=== PATIENT | female | born 1955 | race African-American/Black ===

== ENCOUNTER 2017-02-16 05:54 | Day surgery (SDC) | payer OTHER ==
--- NOTE | ~2017-02-16 | EGD ---
EGD REPORT [facility] [address] [place]. [id number] NAME: KINGSLEY ROWLAND : 55 STATUS : REG [facility] [place] PAT#: [id number] AGE: 61 ADM/REG DATE : 02/16/17 MR#: [id number] REPORT SERV DATE: 02/16/17 DICTATED BY: OMID MYLES DATE: 02/16/17 REPORT STATUS : Draft TRANSCRIBED BY: [facility] DATE: 02/16/17 [facility] Patient Name: Kingsley Rowland Date of : 1955 Attending MD: OMID MYLES MD Procedure Date No Time: 02/16/2017 Procedure: Colonoscopy Indications: High risk colon cancer surveillance: Personal history of colonic polyps; last exam 5 years ago. Patient Profile: Informed consent was obtained from the patient by me prior to the procedure. Risks, benefits, and alternatives were discussed including the risk of bleeding, perforation, infection, reaction to medicine, missed lesion, and cardiopulmonary complications. Referring MD: TACOS BARNES Medicines: Monitored Anesthesia Care Complications: No immediate complications. Procedure: Pre-Anesthesia Assessment: - ASA Grade Assessment: III - A patient with severe systemic disease. After I obtained informed consent, the scope was passed under direct vision. Throughout the procedure, the patient's blood pressure, pulse, and oxygen saturations were monitored continuously. The CF [id number] was introduced through the anus and advanced to the cecum, identified by appendiceal orifice and ileocecal valve. The colonoscope was slowly withdrawn with careful examination all mucosal surfaces including specific attention around flexures and tip deflection behind folds; retroflexion performed in rectum. The colonoscopy was performed without difficulty. The patient tolerated the procedure well. The quality of the bowel preparation was adequate. The ileocecal valve, appendiceal orifice and rectum were photographed. Findings: A pedunculated polyp was found in the sigmoid colon. The polyp was 10 mm in size. The polyp was removed with a hot snare. Resection and retrieval were complete. A sessile polyp was found in the descending colon. The polyp was 5 mm in size. The polyp was removed with a cold biopsy forceps. Resection and retrieval were complete. A sessile polyp was found in the rectum. The polyp was 5 mm in size. The polyp was removed with a cold biopsy forceps. Resection and retrieval were complete. EGD REPORT [address] [address] NAME: KINGSLEY ROWLAND : 55 STATUS : REG [facility]#: [id number] AGE: 61 ADM/REG DATE : 02/16/17 MR#: [id number] REPORT SERV DATE: 02/16/17 DICTATED BY: OMID MYLES DATE: 02/16/17 REPORT STATUS : Draft TRANSCRIBED BY: [place] DATE: 02/16/17 Impression: - One 10 mm polyp in the sigmoid colon. Resected and retrieved. - One 5 mm polyp in the descending colon. Resected and retrieved. - One 5 mm polyp in the rectum. Resected and retrieved. Recommendation: - Patient has a contact number available for emergencies. The signs and symptoms of potential delayed complications were discussed with the patient. Return to normal activities tomorrow. Written discharge instructions were provided to the patient. - Patient has a contact number available for emergencies. The signs and symptoms of potential delayed complications were discussed with the patient. Return to normal activities tomorrow. Written discharge instructions were provided to the patient. - Regular diet. - No aspirin, ibuprofen, naproxen, or other non-steroidal anti-inflammatory drugs for 2 weeks after polyp removal. - Await pathology results. - Repeat colonoscopy for surveillance based on pathology results. Procedure Code(s): --- Professional --- 58733, Colonoscopy, flexible, proximal to splenic flexure; with removal of tumor(s), polyp(s), or other lesion(s) by snare technique 29417, 59, Colonoscopy, flexible, proximal to splenic flexure; with biopsy, single or multiple Diagnosis Code(s): --- Professional --- K62.1, Rectal polyp D12.4, Benign neoplasm of descending colon D12.5, Benign neoplasm of sigmoid colon Z86.010, Personal history of colonic polyps CPT copyright 2013 [employer]. All rights reserved. The codes documented in this report are preliminary and upon auditing coder review may be revised to meet current compliance requirements. OMID MYLES MD 02/16/2017 7:28 AM EGD REPORT [facility] [address] [id number] NAME: KINGSLEY ROWLAND : 55 STATUS : REG [facility]#: [id number] AGE: 61 ADM/REG DATE : 02/16/17 MR#: [id number] REPORT SERV DATE: 02/16/17 DICTATED BY: OMID MYLES. DATE: 02/16/17 REPORT STATUS : Draft TRANSCRIBED BY: [employer] DATE: 02/16/17 This report has been signed electronically. Number of Addenda: 0 Note Initiated On: 02/16/2017 7:01 AM Scope Withdrawal Time 0 hours 10 minutes 10 seconds [address] [place] [id number]
[~2017-02-16 05:54] MED LIST: AMOXIL400 MG/5 M PO; BACDS PO; CRESTOR10 PO; GLUCPH PO; GLUCPH8 PO; HYCET 7.5 MG-3473 ML PO; HYZAAR 100/25 T1 TAB PO; HYZAAR1 TAB PO; LOP25 PO; NABUMETONE750 MG PO; NORCO1 TAB PO; VESICARE5 PO; VICTOZA 1.2 MG SQ; ZANTAC 150 PO; ZANTAC150 MG PO; ZOFRAN ODT4 MG PO; ZOL100 PO; [UNRECOGNIZED DRUG - REMARK]; [UNRECOGNIZED DRUG - REMARK]
== END 2017-02-16 23:59 | disposition home or self-care (01) ==
LOC: DMU 05:54
PROVIDERS: Internal Medicine Gastroenterology
PROC: 0DBM8ZX Excision of Descending Colon, Via Natural or Artificial Opening Endoscopic, Diagnostic (ICD-10-PCS; 2017-02-16)
PROC: 0DBN8ZZ Excision of Sigmoid Colon, Via Natural or Artificial Opening Endoscopic (ICD-10-PCS; principal; 2017-02-16 07:00)
PROC: 0DBP8ZX Excision of Rectum, Via Natural or Artificial Opening Endoscopic, Diagnostic (ICD-10-PCS; 2017-02-16 07:00)
DX: Z12.11 Encounter for screening for malignant neoplasm of colon (principal); D12.5 Benign neoplasm of sigmoid colon; K63.5 Polyp of colon; I10 Essential (primary) hypertension; D64.9 Anemia, unspecified; E11.9 Type 2 diabetes mellitus without complications; G47.33 Obstructive sleep apnea (adult) (pediatric); F32.9 Major depressive disorder, single episode, unspecified; Z86.010 Personal history of colon polyps; Z90.89 Acquired absence of other organs; E78.00 Pure hypercholesterolemia, unspecified; M19.90 Unspecified osteoarthritis, unspecified site; K21.9 Gastro-esophageal reflux disease without esophagitis; F41.9 Anxiety disorder, unspecified; Z96.653 Presence of artificial knee joint, bilateral
CPT/HCPCS: 82962; 88305